=== PATIENT | female | born 1960 | race Caucasian/White ===

== ENCOUNTER 2016-08-08 08:45 | Emergency (ER) | payer OTHER ==
[~2016-08-08] VITALS: Ht 170.2 cm; Wt 61.4 kg
[~2016-08-08 08:45] MED LIST: LEVAQUIN750 MG PO; PREDNISONE50 MG PO; VENTOLIN HFA18 GM IH
[2016-08-08 09:29] LABS: EOSINOPHIL (%) 0.2 % (0-5); HEMATOCRIT 41.1 % (36.0-46.0); IMMATURE GRANULOCYTE (%) 0.2 % (0.0-0.7); IMMATURE GRANULOCYTE COUNT 0.1 K/uL; LYMPHOCYTE COUNT 0.4 K/uL (1.0-2.8); MCH 34.2 PG (29.0-34.0); MCHC 34.1 G/DL (30.0-36.0); MCV 100.5 FL (83-99); MEAN PLAT.VOLUME 9.3 uM^3 (9.5-12.4); MONOCYTE (%) 6.9 % (3-12); MONOCYTE COUNT 0.3 K/uL (0-0.8); NEUTROPHIL (%) 83.2 % (45-76); NEUTROPHIL COUNT 3.5 K/uL (1.8-6.4); PLATELET COUNT 116 K/uL (156-360); RED BLOOD COUNT 4.09 M/uL (3.80-5.20); WHITE BLOOD COUNT 4.2 K/uL (4.1-10.2)
[2016-08-08 09:37] LABS: CHLORIDE 106 mEq/L (99-109); POTASSIUM 4.1 mEq/L (3.7-5.4); SODIUM 139 mEq/L (136-147)
[2016-08-08 09:38] LABS: GLUCOSE 98 mg/dL (70-99)
[2016-08-08 09:40] LABS: ANION GAP 9 MEQ/L (2-14)
[2016-08-08 09:42] LABS: GFR ESTIMATE (CALCULATED) > 59 mL/min/
[2016-08-08 09:43] LABS: UREA NITROGEN (BUN) 12 mg/dL (9-23)
[2016-08-08 10:15] LABS: INFLUENZA A VIRAL ANTIGEN POSITIVE; INFLUENZA B VIRAL ANTIGEN NEGATIVE
[2016-08-08] MEDS ORDERED: TAMIFLU75 MG PO (10:36)
[2016-08-08 10:47] VITALS: BP 130/68
== END 2016-08-08 10:48 | disposition home or self-care (01) ==
LOC: EME 08:45
PROVIDERS: Emergency Medicine
DX: J10.1 Influenza due to other identified influenza virus with other respiratory manifestations (principal); F17.200 Nicotine dependence, unspecified, uncomplicated
CPT/HCPCS: 71020; 80048; 85025; 87502; 94640; 99281; 99284